=== PATIENT | male | born 1975 | race American Indian/Alaskan Native ===

== ENCOUNTER 2017-06-20 12:04 | Emergency (ER) | payer SELFPAY ==
[2017-06-20 12:14] VITALS: BP 166/115
--- NOTE | 2017-06-20 13:00 | XRay Report ---
PA and lateral chest: Cough. The aorta is tortuous. There is a levoscoliosis at the thoracolumbar spine. The lungs are clear. The heart is normal in size. The osseous structures are intact. No prior exam for comparison. Impression: No acute pathology identified.
== END 2017-06-20 18:30 | disposition left against medical advice (07) ==
LOC: ED 12:04
DX: Z53.21 Procedure and treatment not carried out due to patient leaving prior to being seen by health care provider (principal)
CPT/HCPCS: 71020